=== PATIENT | female | born 2005 | race Caucasian/White ===

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

== ENCOUNTER 2024-03-14 07:15 | Day surgery (SDC) | payer BC ==
[~2024-03-14 07:15] MED LIST: Sodium Chloride 0.9% 10 ML Syringe FLUSH PRN; Sodium Chloride 0.9% 10 ML Syringe FLUSH SCH
[2024-03-14] MEDS: Lactated Ringers 1,000 ML IV SCH (07:35)
[2024-03-14] MEDS ORDERED: Propofol 200 MG/20 ML SDV ONE (07:50)
== END 2024-03-14 09:05 | disposition home or self-care (01) ==
LOC: JD.SDS 07:15
PROVIDERS: ATTEND Surgery
DX: K29.80 Duodenitis without bleeding (principal); F32.A Depression, unspecified; F41.9 Anxiety disorder, unspecified
CPT/HCPCS: 43239; 81025; J2704; J7120; 00731

== ENCOUNTER 2024-05-21 07:48 | Day surgery (SDC) | payer BC ==
[2024-05-21] MEDS: Lactated Ringers 1,000 ML IV SCH (08:20)
[2024-05-21] MEDS ORDERED: Lidocaine 2% 5 ML SDV ONE (09:17)
[2024-05-21] MEDS ORDERED: Propofol 200 MG/20 ML SDV ONE (09:17)
== END 2024-05-21 11:05 | disposition home or self-care (01) ==
LOC: JD.SDS 07:48
PROVIDERS: ATTEND Surgery
DX: K59.00 Constipation, unspecified (principal); R10.9 Unspecified abdominal pain; K64.9 Unspecified hemorrhoids; E66.3 Overweight; Z79.899 Other long term (current) drug therapy; Z20.822 Contact with and (suspected) exposure to COVID-19; Z68.24 Body mass index [BMI] 24.0-24.9, adult
CPT/HCPCS: 45378; 81025; J2704; J7120; J3490